=== PATIENT | female | born 1945 | race Hispanic/Latino ===

== ENCOUNTER → 2018-06-03 | Outpatient (CLI) | payer OTHER, MEDICARE ==
[~2018-06-03] MED LIST: ASPI-555 PO; CALC-483 PO; GABA-529 PO; LOSA100T58 PO; NAPR375T6 PO; OMEP20CA10 PO; ROSU10TA PO; VITA1TAB39 PO
== END | disposition home or self-care (01) ==
LOC: RAH 11:29
PROVIDERS: ATTEND Family Medicine
DX: R10.32 Left lower quadrant pain (principal)
CPT/HCPCS: 76856

== ENCOUNTER → 2019-03-16 | Outpatient (CLI) | payer OTHER, MEDICARE ==
[~2019-03-16] VITALS: Ht 154.9 cm; Wt 75.3 kg
[~2019-03-16] MED LIST changes: +OMEP-50 PO; -OMEP20CA10 PO; +REGADENOSON 0.4 MG/5 ML PF SYG IVP SCH; -ROSU10TA PO; +ROSU10TA22 PO
== END | disposition home or self-care (01) ==
LOC: SHCH 10:00
PROVIDERS: ATTEND Internal Medicine Cardiovascular Disease
DX: I25.10 Atherosclerotic heart disease of native coronary artery without angina pectoris (principal)
CPT/HCPCS: 78452; 93017; 96374; A9500 ×2; J2785

== ENCOUNTER → 2020-04-16 | Outpatient (CLI) | payer OTHER, MEDICARE ==
[~2020-04-16] MED LIST changes: -ASPI-555 PO; +ASPI-556 PO; +IOHEXOL-350 50ML VIAL IV ONE; -OMEP-50 PO; +OMEP20CA12 PO; -REGADENOSON 0.4 MG/5 ML PF SYG IVP SCH
== END | disposition home or self-care (01) ==
LOC: RAH 11:08
PROVIDERS: ATTEND Internal Medicine Cardiovascular Disease
DX: G31.9 Degenerative disease of nervous system, unspecified (principal)
CPT/HCPCS: 70470; Q9967

== ENCOUNTER → 2020-07-22 | Outpatient (CLI) | payer OTHER, MEDICARE ==
[~2020-07-22] MED LIST changes: -IOHEXOL-350 50ML VIAL IV ONE
== END | disposition home or self-care (01) ==
LOC: OIH 13:13
PROVIDERS: ATTEND Internal Medicine
DX: M19.011 Primary osteoarthritis, right shoulder (principal); M19.012 Primary osteoarthritis, left shoulder; M06.4 Inflammatory polyarthropathy
CPT/HCPCS: 72202; 73030